=== PATIENT | male | born 1965 | race Asian ===

== ENCOUNTER 2019-01-13 10:04 | Day surgery (SDC) | payer OTHER ==
[~2019-01-13] VITALS: Ht 30.5 cm; Wt 0.5 kg
== END 2019-01-13 11:40 | disposition home or self-care (01) ==
LOC: OR 10:04
PROC: 3E0R33Z Introduction of Anti-inflammatory into Spinal Canal, Percutaneous Approach (ICD-10-PCS; principal; 2019-01-13)
PROC: B01BYZZ Fluoroscopy of Spinal Cord using Other Contrast (ICD-10-PCS; 2019-01-13)
DX: M51.16 Intervertebral disc disorders with radiculopathy, lumbar region (principal)
CPT/HCPCS: J1020

== ENCOUNTER 2020-01-19 07:54 | Day surgery (SDC) | payer OTHER | END 2020-01-19 10:29 | disposition home or self-care (01) | LOC: OR 07:54 | PROC: 3E0T3TZ Introduction of Destructive Agent into Peripheral Nerves and Plexi, Percutaneous Approach (ICD-10-PCS; principal; 2020-01-19) | PROC: BR16YZZ Fluoroscopy of Lumbar Facet Joint(s) using Other Contrast (ICD-10-PCS; 2020-01-19) | DX: M47.816 Spondylosis without myelopathy or radiculopathy, lumbar region (principal) | CPT/HCPCS: J2001 ==

== ENCOUNTER 2020-03-01 07:52 | Day surgery (SDC) | payer OTHER ==
[~2020-03-01] VITALS: Ht 30.5 cm; Wt 0.5 kg
== END 2020-03-01 08:57 | disposition home or self-care (01) ==
LOC: OR 07:52
PROC: 3E0T3TZ Introduction of Destructive Agent into Peripheral Nerves and Plexi, Percutaneous Approach (ICD-10-PCS; principal; 2020-03-01)
PROC: BR16YZZ Fluoroscopy of Lumbar Facet Joint(s) using Other Contrast (ICD-10-PCS; 2020-03-01)
DX: M47.816 Spondylosis without myelopathy or radiculopathy, lumbar region (principal)
CPT/HCPCS: J2001